=== PATIENT | male | born 1955 | race Caucasian/White ===

== ENCOUNTER → 2017-07-10 | Outpatient (REF) | payer OTHER | LOC: M SFHCCLAY 08:52 | PROVIDERS: ATTEND Family Medicine | DX: I25.811 Atherosclerosis of native coronary artery of transplanted heart without angina pectoris (principal) ==

== ENCOUNTER → 2017-07-25 | Outpatient (REF) | payer OTHER ==
[2017-07-25 17:40] LABS: MEAN CORPUSCULAR HEMOGLOBIN 28.6 pg (27.0-33.0); MEAN CORPUSCULAR HGB CONC 33.7 g/dl (32.0-36.5); MEAN CORPUSCULAR VOLUME 84.7 fl (80.0-96.0); PLATELET COUNT, AUTOMATED 186 10^3/uL (150-450); RED CELL DISTRIBUTION WIDTH 13.6 % (11.5-14.5)
[2017-07-25 17:52] LABS: POSITIVE DIFF POS FLAG; WHITE BLOOD COUNT 10.3 10^3/uL (4.0-10.0)
[2017-07-25 17:53] LABS: ADD MANUAL DIFFER YES; BLASTS POS FLAG; DIFF SLIDE NUMBER 222; POSITIVE MORPH POS FLAG
[2017-07-25 18:16] LABS: ALBUMIN 3.7 GM/DL (3.2-5.2); ALBUMIN/GLOBULIN RATIO 1.12 (1.00-1.93); ALKALINE PHOSPHATASE 425 U/L (45-117); ALT/SGPT 387 U/L (12-78); ANION GAP 7 MEQ/L (8-16); AST/SGOT 316 U/L (7-37); BILIRUBIN,TOTAL 0.8 MG/DL (0.2-1.0); BLOOD UREA NITROGEN 13 MG/DL (7-18); CALCIUM LEVEL 8.7 MG/DL (8.8-10.2); CARBON DIOXIDE LEVEL 28 MEQ/L (21-32); CHLORIDE LEVEL 102 MEQ/L (98-107); CREATININE FOR GFR 1.06 MG/DL (0.70-1.30); GLOMERULAR FILTRATION RATE > 60.0 (>49); GLUCOSE, FASTING 82 MG/DL (80-110); POTASSIUM SERUM 4.3 MEQ/L (3.5-5.1); SODIUM LEVEL 137 MEQ/L (136-145)
[2017-07-25 20:55] LABS: BANDS 1 % (< 11); BASOPHILS 1 % (0-4); EOSINOPHILS 2 % (0-5)
[2017-07-25 20:56] LABS: SMUDGE CELLS 1+
[2017-07-25 21:27] LABS: ERYTHROCYTE SEDIMENTATION RATE 4 mm/hr (0-20)
[2017-07-29 00:07] LABS: Lyme Disease IgG/IgM Antibodie <0.91 ISR (0.00-0.90); Lyme Disease IgM Ab Quantitati <0.80 index (0.00-0.79)
== END ==
LOC: M SFHCCLAY 12:00
PROVIDERS: ATTEND Family Medicine
DX: M79.1 Myalgia (principal); Z20.9 Contact with and (suspected) exposure to unspecified communicable disease

== ENCOUNTER → 2017-07-26 | Outpatient (REF) | payer OTHER | LOC: M SFHCCLAY 09:32 | PROVIDERS: ATTEND Family Medicine | DX: M79.1 Myalgia (principal); Z20.9 Contact with and (suspected) exposure to unspecified communicable disease ==

== ENCOUNTER → 2017-07-30 | Outpatient (REF) | payer OTHER ==
[2017-07-30 12:26] LABS: ALBUMIN 3.3 GM/DL (3.2-5.2); ALBUMIN/GLOBULIN RATIO 0.97 (1.00-1.93); BILIRUBIN,DIRECT 0.3 MG/DL (0.0-0.2); BILIRUBIN,TOTAL 0.7 MG/DL (0.2-1.0); TOTAL PROTEIN 6.7 GM/DL (6.4-8.2)
== END ==
LOC: M SFHCCLAY 07:02
PROVIDERS: ATTEND Family Medicine
DX: R74.8 Abnormal levels of other serum enzymes (principal)

== ENCOUNTER → 2017-08-06 | Outpatient (CLI) | payer OTHER ==
[2017-08-06 17:57] LABS: MEAN CORPUSCULAR HEMOGLOBIN 27.8 pg (27.0-33.0); MEAN CORPUSCULAR HGB CONC 33.5 g/dl (32.0-36.5); MEAN CORPUSCULAR VOLUME 82.9 fl (80.0-96.0); PLATELET COUNT, AUTOMATED 292 10^3/uL (150-450); RED CELL DISTRIBUTION WIDTH 14.2 % (11.5-14.5); WHITE BLOOD COUNT 6.4 10^3/uL (4.0-10.0)
[2017-08-06 18:05] LABS: ADD MANUAL DIFFER YES; BLASTS POS FLAG; DIFF SLIDE NUMBER 275; POSITIVE MORPH POS FLAG
[2017-08-06 19:17] LABS: ALBUMIN 3.7 GM/DL (3.2-5.2); ALBUMIN/GLOBULIN RATIO 1.12 (1.00-1.93); ALKALINE PHOSPHATASE 391 U/L (45-117); ALT/SGPT 151 U/L (12-78); AST/SGOT 57 U/L (7-37); BILIRUBIN,DIRECT 0.2 MG/DL (0.0-0.2); BILIRUBIN,TOTAL 0.5 MG/DL (0.2-1.0); BLOOD UREA NITROGEN 16 MG/DL (7-18); CREATININE FOR GFR 0.96 MG/DL (0.70-1.30); FERRITIN 257 NG/ML (26-388); GLOMERULAR FILTRATION RATE > 60.0 (>49); PERCENT SATURATION 30.2 % (19.7-50.0); TOTAL IRON BINDING CAPACITY 420 UG/DL (250-450)
[2017-08-06 19:43] LABS: EOSINOPHILS 2 % (0-5)
[2017-08-11 13:17] LABS: HEPATITIS B SURFACE ANTIBODY POSITIVE (POSITIVE)
[2017-08-11 13:37] LABS: HEP C VIRUS AB SCREEN MEDICARE 0.1 INDEX (<0.8)
[2017-08-14 00:07] LABS: HEPATITIS E IgM ANTIBODY Negative (Negative)
== END ==
LOC: M LAB 15:58
PROVIDERS: ATTEND Internal Medicine Gastroenterology
DX: R94.5 Abnormal results of liver function studies (principal)
CPT/HCPCS: 36415; 80076; 82565; 82728; 82784; 83550; 84520; 85025; 86038; 86255; 86256; 86376; 86705; 86706; 86708; 86709; 86790; 87340; G0472

== ENCOUNTER → 2017-08-11 | Outpatient (REF) | payer OTHER ==
[2017-08-12 08:28] LABS: CONTROL LINE MONO RF C INT CTR LINE PRESENT
[2017-08-13 08:14] LABS: CYTOMEGALOVIRUS IgG ANTIBODY <0.60 U/mL (0.00-0.59)
== END ==
LOC: M SFHCCLAY 12:00
PROVIDERS: ATTEND Family Medicine
DX: R79.89 Other specified abnormal findings of blood chemistry (principal)

== ENCOUNTER → 2017-08-11 | Outpatient (CLI) | payer OTHER ==
--- NOTE | 2017-08-11 09:01 | REP ---
Clinical: Elevated liver function test with abdominal pain. Technique: Sol scale ultrasound using curved array transducer. Findings: The liver and pancreas are normal in contour, size, and echogenicity without focal hepatic or pancreatic lesions identified. The gallbladder is normal without gallstones, wall thickening or pericholecystic fluid. No biliary ductal dilatation is appreciated, and the common bile duct measures 2.7 mm diameter. The right kidney is normal in reniform shape without hydronephrosis and measures 10.5 x 6.6 x 3.2 cm. No ascites. Visualized portions of the abdominal aorta normal. Impression: Normal right upper quadrant and gallbladder abdominal ultrasound. Signed by Marquise San MD 08/11/2017 08:53 A
== END ==
LOC: M RAD 07:55
PROVIDERS: ATTEND Family Medicine
DX: R94.5 Abnormal results of liver function studies (principal)

== ENCOUNTER → 2018-07-14 | Outpatient (REF) | payer MEDICARE ==
[2018-07-14 12:47] LABS: PSA SCREENING 2.05 NG/ML (< 4.0)
== END ==
LOC: M SFHCCLAY 08:59
DX: Z12.5 Encounter for screening for malignant neoplasm of prostate (principal)
CPT/HCPCS: G0103

== ENCOUNTER → 2019-01-06 | Outpatient (REF) | payer MEDICARE ==
[2019-01-06 11:23] LABS: HEMATOCRIT 42.4 % (42.0-52.0); HEMOGLOBIN 14.1 g/dl (13.5-17.5); MEAN CORPUSCULAR HEMOGLOBIN 29.1 pg (27.0-33.0); MEAN CORPUSCULAR HGB CONC 33.3 g/dl (32.0-36.5); MEAN CORPUSCULAR VOLUME 87.6 fl (80.0-96.0); PLATELET COUNT, AUTOMATED 211 10^3/uL (150-450); RED BLOOD COUNT 4.84 10^6/uL (4.30-6.10); WHITE BLOOD COUNT 4.8 10^3/uL (4.0-10.0)
[2019-01-06 12:12] LABS: ALBUMIN 3.5 GM/DL (3.2-5.2); ALT/SGPT 34 U/L (12-78); BILIRUBIN,TOTAL 0.4 MG/DL (0.2-1.0); BLOOD UREA NITROGEN 17 MG/DL (7-18); CALCIUM LEVEL 8.4 MG/DL (8.8-10.2); CARBON DIOXIDE LEVEL 27 MEQ/L (21-32); CHLORIDE LEVEL 109 MEQ/L (98-107); CREATININE FOR GFR 0.91 MG/DL (0.70-1.30); GLOMERULAR FILTRATION RATE > 60.0 (>49); GLUCOSE, FASTING 92 MG/DL (70-100); POTASSIUM SERUM 4.5 MEQ/L (3.5-5.1); SODIUM LEVEL 144 MEQ/L (136-145); TOTAL PROTEIN 6.3 GM/DL (6.4-8.2)
== END ==
LOC: M LABDRAWC 11:05
PROVIDERS: ATTEND Internal Medicine Cardiovascular Disease
DX: E78.49 Other hyperlipidemia (principal); Z79.899 Other long term (current) drug therapy

== ENCOUNTER → 2019-03-02 | Outpatient (REF) | payer MEDICARE ==
[2019-03-02 12:45] LABS: ALT/SGPT 45 U/L (12-78); BLOOD UREA NITROGEN 18 MG/DL (7-18); CALCIUM LEVEL 8.8 MG/DL (8.8-10.2); CARBON DIOXIDE LEVEL 30 MEQ/L (21-32); CHLORIDE LEVEL 111 MEQ/L (98-107); CHOLESTEROL LEVEL 122 MG/DL (<200); CHOLESTEROL RISK RATIO 1.967 (<5); CREATININE FOR GFR 1.01 MG/DL (0.70-1.30); GLOMERULAR FILTRATION RATE > 60.0 (>49); GLUCOSE, FASTING 87 MG/DL (70-100); HDL CHOLESTEROL 62 MG/DL (>40); LDL CHOLESTEROL 52 MG/DL (<100); NON-HDL-C 60 MG/DL; POTASSIUM SERUM 4.5 MEQ/L (3.5-5.1); SODIUM LEVEL 143 MEQ/L (136-145); TRIGLYCERIDES LEVEL 41 MG/DL (<150)
== END ==
LOC: M SFHCCLAY 09:04
PROVIDERS: ATTEND Family Medicine
DX: I25.10 Atherosclerotic heart disease of native coronary artery without angina pectoris (principal)

== ENCOUNTER → 2020-02-03 | Outpatient (REF) | payer MEDICARE ==
[2020-02-03 12:34] LABS: ALBUMIN 3.9 GM/DL (3.2-5.2); ALT/SGPT 49 U/L (12-78); BILIRUBIN,TOTAL 0.6 MG/DL (0.2-1.0); BLOOD UREA NITROGEN 22 MG/DL (7-18); CALCIUM LEVEL 8.8 MG/DL (8.8-10.2); CARBON DIOXIDE LEVEL 30 MEQ/L (21-32); CHLORIDE LEVEL 108 MEQ/L (98-107); CHOLESTEROL LEVEL 139 MG/DL (<200); CHOLESTEROL RISK RATIO 2.527 (<5); CREATININE FOR GFR 0.91 MG/DL (0.70-1.30); GLOMERULAR FILTRATION RATE > 60.0 (>49); GLUCOSE, FASTING 87 MG/DL (70-100); HDL CHOLESTEROL 55 MG/DL (>40); LDL CHOLESTEROL 72 MG/DL (<100); NON-HDL-C 84 MG/DL; POTASSIUM SERUM 4.5 MEQ/L (3.5-5.1); SODIUM LEVEL 141 MEQ/L (136-145); TRIGLYCERIDES LEVEL 58 MG/DL (<150)
== END ==
LOC: M SFHCCLAY 08:20
PROVIDERS: ATTEND Family Medicine
DX: I25.10 Atherosclerotic heart disease of native coronary artery without angina pectoris (principal); M16.11 Unilateral primary osteoarthritis, right hip

== ENCOUNTER → 2020-05-31 | Outpatient (REF) | payer MEDICARE | LOC: M LAB REF 19:06 | PROVIDERS: ATTEND Dermatology | DX: L57.0 Actinic keratosis (principal) ==

== ENCOUNTER → 2023-01-30 | Outpatient (REF) | payer MEDICARE, OTHER | LOC: M SFHCCLAY 16:49 | PROVIDERS: ATTEND Physician Assistant Medical | DX: J01.90 Acute sinusitis, unspecified (principal) ==

== ENCOUNTER → 2023-05-21 | Outpatient (REF) | payer OTHER ==
[2023-05-21 19:15] LABS: HEMATOCRIT 41.4 % (42.0-52.0); HEMOGLOBIN 14.1 g/dl (13.5-17.5); MEAN CORPUSCULAR HEMOGLOBIN 29.9 pg (27.0-33.0); MEAN CORPUSCULAR HGB CONC 34.1 g/dl (32.0-36.5); MEAN CORPUSCULAR VOLUME 87.9 fl (80.0-96.0); PLATELET COUNT, AUTOMATED 204 10^3/uL (150-450); RED BLOOD COUNT 4.71 10^6/uL (4.30-6.10)
[2023-05-21 19:44] LABS: BLOOD UREA NITROGEN 21 MG/DL (9-23); CALCIUM LEVEL 9.3 MG/DL (8.3-10.6); CARBON DIOXIDE LEVEL 28 MMOL/L (20-31); CHLORIDE LEVEL 110 MMOL/L (98-107); CREATININE FOR GFR 1.07 MG/DL (0.70-1.30); GLOMERULAR FILTRATION RATE > 60.0 (>49); GLUCOSE, FASTING 81 MG/DL (74-106); POTASSIUM SERUM 4.6 MMOL/L (3.5-5.1); SODIUM LEVEL 142 MMOL/L (136-145)
== END ==
LOC: M SFHCCLAY 14:43
PROVIDERS: ATTEND Family Medicine
DX: H90.2 Conductive hearing loss, unspecified (principal); I25.10 Atherosclerotic heart disease of native coronary artery without angina pectoris

== ENCOUNTER → 2024-05-12 | Outpatient (REF) | payer OTHER | LOC: M LAB REF 16:52 | PROVIDERS: ATTEND Surgery | DX: D23.5 Other benign neoplasm of skin of trunk (principal) ==